=== PATIENT | male | born 1985 | race Caucasian/White ===

== ENCOUNTER → 2017-08-19 | Outpatient (CLI) | payer OTHER ==
--- NOTE | 2017-08-19 16:53 | RADIOLOGY IMAGING REPORT ---
[place] [facility] [place]: Yinka Welch : 1985 MR: [id number] V: [id number] EXAM DATE: ORDERING PHYSICIAN: YUMIKO CLOUD TECHNOLOGIST: Location: [facility] [place] Patient: Yinka Welch : 1985 Visit/Account:[id number] Date of Sevice: 08/19/2017 Exam type: PICC LINE INSERTION, PICC LINE PLACEMENT History: Need for IV antibiotics Comparison: None. Findings: Informed consent was obtained. The patient's left arm was prepped and draped in usual sterile fashio n. Local anesthesia was accomplished with 1% lidocaine. Utilizing both sonographic and fluoroscopic guidance a 41 cm long trimmed 4 Palestinian single lumen power PICC was inserted via the patent left basi lic vein with the distal tip resting in superior vena cava. The PICC line was flushed with 5 mL of s katiana flush. The proximal portion PICC line was adhered the patient's arm the sterile dressing. The procedure was accomplished without apparent complication. The sonographic images were saved to PACS . The fluoroscopy dose area product was 31.04 micro-Youssef per meter squared IMPRESSION: 1. Successful placement of a 41 cm long trimmed 4 Palestinian single lumen power PICC inserted via the pa tent left basilic vein with the distal tip resting in superior vena cava Report Dictated By: Gladis Foley MD at 08/19/2017 4:48 PM Report E-Signed By: Gladis Foley MD at 08/19/2017 4:50 PM WSN:[email or web address]
--- NOTE | 2017-08-19 16:54 | RADIOLOGY IMAGING REPORT ---
FACILITY: [facility] [place] PATIENT NAME: Yinka Welch : 1985 MR: [id number] V: [id number] EXAM DATE: ORDERING PHYSICIAN: YUMIKO CLOUD TECHNOLOGIST: Location: [facility] Patient: Yinka Welch : 1985 Visit/Account:[id number] Date of Sevice: 08/19/2017 Exam type: PICC LINE INSERTION, PICC LINE PLACEMENT History: Need for IV antibiotics Comparison: None. Findings: Informed consent was obtained. The patient's left arm was prepped and draped in usual sterile fashio n. Local anesthesia was accomplished with 1% lidocaine. Utilizing both sonographic and fluoroscopic guidance a 41 cm long trimmed 4 [place] single lumen power PICC was inserted via the patent left basi lic vein with the distal tip resting in superior vena cava. The PICC line was flushed with 5 mL of s katiana flush. The proximal portion PICC line was adhered the patient's arm the sterile dressing. The procedure was accomplished without apparent complication. The sonographic images were saved to PACS . The fluoroscopy dose area product was 31.04 micro-Youssef per meter squared IMPRESSION: 1. Successful placement of a 41 cm long trimmed 4 [place] single lumen power PICC inserted via the pa tent left basilic vein with the distal tip resting in superior vena cava Report Dictated By: Gladis Foley MD at 08/19/2017 4:48 PM Report E-Signed By: Gladis Foley MD at 08/19/2017 4:50 PM WSN:[email or web address]
== END ==
LOC: US 10:52
PROVIDERS: ATTEND Internal Medicine
DX: B55.1 Cutaneous leishmaniasis (principal)
CPT/HCPCS: 36569; 76937; C1751

== ENCOUNTER 2017-09-09 16:12 | Outpatient (RCR) | payer OTHER ==
[2017-08-20 09:24] VITALS: BP 130/74
[2017-08-20] MEDS: SODIUM CHLORIDE 0.9% IVPB SCH (10:00)
[2017-08-20] MEDS: [UNRECOGNIZED DRUG - OTHER] IVPB SCH (10:00)
[2017-08-20 10:09] LABS: PLATELET COUNT, AUTOMATED 166 K/uL (150-450)
[2017-08-21 08:11] VITALS: BP 139/90
[2017-08-21] MEDS: NS(*) 0.9% 100 ML BAG 100 ML IVPB PRN (08:16)
[2017-08-21] MEDS: [UNRECOGNIZED DRUG - OTHER] IVPB SCH (08:30)
[2017-08-21] MEDS: SODIUM CHLORIDE 0.9% IVPB SCH (08:30)
[2017-08-22 08:18] VITALS: BP 156/79
[2017-08-22] MEDS: [UNRECOGNIZED DRUG - OTHER] IVPB SCH (08:29)
[2017-08-22] MEDS: SODIUM CHLORIDE 0.9% IVPB SCH (08:29)
[2017-08-22] MEDS: NS(*) 0.9% 100 ML BAG 100 ML IVPB PRN (08:31)
[2017-08-23] MEDS: NS(*) 0.9% 100 ML BAG 100 ML IVPB PRN (09:00)
[2017-08-23] MEDS: [UNRECOGNIZED DRUG - OTHER] IVPB SCH (09:03)
[2017-08-23] MEDS: SODIUM CHLORIDE 0.9% IVPB SCH (09:03)
[2017-08-23 09:29] VITALS: BP 120/74
[2017-08-24] MEDS: [UNRECOGNIZED DRUG - OTHER] IVPB SCH (09:14)
[2017-08-24] MEDS: NS(*) 0.9% 100 ML BAG 100 ML IVPB PRN (09:14)
[2017-08-24] MEDS: SODIUM CHLORIDE 0.9% IVPB SCH (09:14)
[2017-08-24 10:03] VITALS: BP 121/74
[2017-08-25] MEDS: SODIUM CHLORIDE 0.9% IVPB SCH (08:08)
[2017-08-25] MEDS: [UNRECOGNIZED DRUG - OTHER] IVPB SCH (08:08)
[2017-08-25 08:09] VITALS: BP 136/74
[2017-08-25] MEDS: NS(*) 0.9% 100 ML BAG 100 ML IVPB PRN (08:09)
[2017-08-26] MEDS: NS(*) 0.9% 100 ML BAG 100 ML IVPB PRN (08:21)
[2017-08-26 08:23] VITALS: BP 135/82
[2017-08-26] MEDS: SODIUM CHLORIDE 0.9% IVPB SCH (08:40)
[2017-08-26] MEDS: [UNRECOGNIZED DRUG - OTHER] IVPB SCH (08:40)
[2017-08-27 08:15] VITALS: BP 131/75
[2017-08-27] MEDS: NS(*) 0.9% 100 ML BAG 100 ML IVPB PRN (08:24)
[2017-08-27] MEDS: SODIUM CHLORIDE 0.9% IVPB SCH (08:25)
[2017-08-27] MEDS: [UNRECOGNIZED DRUG - OTHER] IVPB SCH (08:25)
[2017-08-27 08:29] LABS: PLATELET COUNT, AUTOMATED 143 K/uL (150-450)
[2017-08-28] MEDS: NS(*) 0.9% 100 ML BAG 100 ML IVPB PRN (08:26)
[2017-08-28 08:28] VITALS: BP 129/83
[2017-08-28] MEDS: [UNRECOGNIZED DRUG - OTHER] IVPB SCH (08:33)
[2017-08-28] MEDS: SODIUM CHLORIDE 0.9% IVPB SCH (08:33)
[2017-08-29] MEDS: [UNRECOGNIZED DRUG - OTHER] IVPB SCH (08:16)
[2017-08-29] MEDS: SODIUM CHLORIDE 0.9% IVPB SCH (08:16)
[2017-08-29] MEDS: NS(*) 0.9% 100 ML BAG 100 ML IVPB PRN (08:16)
[2017-08-29 08:19] VITALS: BP 130/80
[2017-08-30] MEDS: [UNRECOGNIZED DRUG - OTHER] IVPB SCH (08:55)
[2017-08-30] MEDS: NS(*) 0.9% 100 ML BAG 100 ML IVPB PRN (08:55)
[2017-08-30] MEDS: SODIUM CHLORIDE 0.9% IVPB SCH (08:55)
[2017-08-30 09:48] VITALS: BP 127/80
[2017-08-31 09:09] VITALS: BP 130/80
[2017-08-31] MEDS: SODIUM CHLORIDE 0.9% IVPB SCH (09:10)
[2017-08-31] MEDS: NS(*) 0.9% 100 ML BAG 100 ML IVPB PRN (09:10)
[2017-08-31] MEDS: [UNRECOGNIZED DRUG - OTHER] IVPB SCH (09:10)
[2017-09-01] MEDS: NS(*) 0.9% 100 ML BAG 100 ML IVPB PRN (08:17)
[2017-09-01 08:18] VITALS: BP 130/76
[2017-09-01] MEDS: SODIUM CHLORIDE 0.9% IVPB SCH (08:18)
[2017-09-01] MEDS: [UNRECOGNIZED DRUG - OTHER] IVPB SCH (08:18)
[2017-09-02 08:17] VITALS: BP 124/76
[2017-09-02] MEDS: SODIUM CHLORIDE 0.9% IVPB SCH (08:26)
[2017-09-02] MEDS: [UNRECOGNIZED DRUG - OTHER] IVPB SCH (08:26)
[2017-09-02] MEDS: NS(*) 0.9% 100 ML BAG 100 ML IVPB PRN (08:27)
[2017-09-03] MEDS: NS(*) 0.9% 100 ML BAG 100 ML IVPB PRN (08:20)
[2017-09-03] MEDS: [UNRECOGNIZED DRUG - OTHER] IVPB SCH (08:21)
[2017-09-03] MEDS: SODIUM CHLORIDE 0.9% IVPB SCH (08:21)
[2017-09-03 08:25] VITALS: BP 127/73
[2017-09-03 08:43] LABS: PLATELET COUNT, AUTOMATED 134 K/uL (150-450)
[2017-09-04 08:13] VITALS: BP 117/76
[2017-09-04] MEDS: SODIUM CHLORIDE 0.9% IVPB SCH (08:29)
[2017-09-04] MEDS: NS(*) 0.9% 100 ML BAG 100 ML IVPB PRN (08:29)
[2017-09-04] MEDS: [UNRECOGNIZED DRUG - OTHER] IVPB SCH (08:29)
[2017-09-05] MEDS: SODIUM CHLORIDE 0.9% IVPB SCH (08:13)
[2017-09-05] MEDS: [UNRECOGNIZED DRUG - OTHER] IVPB SCH (08:13)
[2017-09-05] MEDS: NS(*) 0.9% 100 ML BAG 100 ML IVPB PRN (08:13)
[2017-09-05 08:14] VITALS: BP 133/83
[2017-09-06] MEDS: [UNRECOGNIZED DRUG - OTHER] IVPB SCH (09:05)
[2017-09-06] MEDS: SODIUM CHLORIDE 0.9% IVPB SCH (09:05)
[2017-09-06] MEDS: NS(*) 0.9% 100 ML BAG 100 ML IVPB PRN (09:05)
[2017-09-06 09:08] VITALS: BP 134/84
[2017-09-07] MEDS: [UNRECOGNIZED DRUG - OTHER] IVPB SCH (09:01)
[2017-09-07] MEDS: SODIUM CHLORIDE 0.9% IVPB SCH (09:01)
[2017-09-07] MEDS: NS(*) 0.9% 100 ML BAG 100 ML IVPB PRN (09:02)
[2017-09-07 09:03] VITALS: BP 136/81
[2017-09-08] MEDS: NS(*) 0.9% 100 ML BAG 100 ML IVPB PRN (08:12)
[2017-09-08 08:18] VITALS: BP 119/72
[2017-09-08] MEDS: SODIUM CHLORIDE 0.9% IVPB SCH (08:24)
[2017-09-08] MEDS: [UNRECOGNIZED DRUG - OTHER] IVPB SCH (08:24)
[2017-09-08 16:24] LABS: PLATELET COUNT, AUTOMATED 126 K/uL (150-450)
[~2017-09-09 16:12] MED LIST: DEXTROSE 5%(*) 100 ML BAG 100 ML IVPB PRN; LIDOCAINE/SOD BICARB 8.4% SYR ID PRN
[2017-09-09 16:16] VITALS: BP 118/78
== END 2017-09-12 11:54 | disposition home or self-care (01) ==
LOC: SPU 16:12
PROVIDERS: ATTEND Internal Medicine
DX: B55.1 Cutaneous leishmaniasis (principal)
CPT/HCPCS: 36592; 82150; 83690; 85025; 96365; 96366; J7050; 82040; 82247; 82310; 82374; 82435; 82565; 82947; 84075; 84132; 84155; 84295; 84450; 84460; 84520

== ENCOUNTER 2017-09-19 08:24 | Outpatient (RCR) | payer OTHER | END 2017-10-16 10:54 | disposition home or self-care (01) | LOC: SPU 08:24 | PROVIDERS: ATTEND Internal Medicine | DX: B55.1 Cutaneous leishmaniasis (principal) | CPT/HCPCS: 36415; 82040; 82150; 82247; 82310; 82374; 82435; 82565; 82947; 83690; 84075; 84132; 84155; 84295; 84450; 84460; 84520 ==